=== PATIENT | male | born 1955 | race Two or more races ===

== ENCOUNTER 2019-07-13 13:27 | Inpatient (IN) | payer OTHER ==
[~2019-07-13] VITALS: Ht 172.7 cm; Wt 72.6 kg
[2019-07-13 16:00] VITALS: BP 90/59
--- NOTE | 2019-07-13 16:00 | NUR ---
VOLUNTEER MANAGER NOTE- PT ADMITTED TO GPS AT THIS TIME FOR 5150 DTS DTO HE WAS BROUGHT IN FROM [facility] ER. PT HAD STATED HE WAS GOING TO "KILL FAMILY AND SELF" ON FACE TO FACE ASSESSMENT, PT IS ALERT WITH [facility]TACT, MINIMIZING SITUATION. WHEN ASKED WHY HE'S HERE, PT STATED, "I THINK THERE WAS A FIGHT AT MY HOUSE." VS - B/P-118/75, HR- 90, RR-18, TEMP- 98.6, SATURATION- 97% RA. PT IS ORIENTED TO PERSON PLACE AND TIME. SOMEWHAT CONFUSED ABOUT EVENTS. STATED HE HAD RECENT HOSPITALIZATION IN [place] FOR DEPRESSION. ADMITTED TO SEVERAL SUICIDE ATTEMPTS IN PAST WITH RESULTING HOSPITALIZATIONS FOR THE IDEATION. DENIES SI HI AH VH AT PRESENT BUT ADMITS TO PARANOIA AT TIMES. SKIN CHECK COMPLETED. SKIN TEAR POSTERIOR LEFT FOREARM AND FUNGAL INFECTION TO LEFT GREAT TOE. PHOTOS TAKEN AND PLACED IN CHART. WOUND CARE CONSULT ORDERED. PT HAS ACCUCHECK OF 213. DR ZAMUDIO NOTIFIED OF ADMIT W ORDERS GIVEN. KRYSTINA ANTONIO NOTIFIED OF DR RAYO ADMIT HE'S COVERING FOR DR RAYO. MED REC TO BE COMPLETED AND SSI ADDRESSED. PT IS AMBULATORY, USES BR, MOVES ALL EXTREMITIES, FULL CODE W NKA. ORDERS WRITTEN AND COMPLIED WITH. PT RIGHTS PAMPHLET GIVEN AND ORIENTED TO UNIT. FOLLOW GPS PROTOCOL FOR SAFETY MONITORING AND ENCOURAGE PT INTERACTION.
[2019-07-13] MEDS ORDERED: MAGNESIUM HYDROXIDE 30 ML UDC PO PRN (16:30)
[2019-07-13] MEDS ORDERED: ACETAMINOPHEN 325 MG TABLET PO PRN (16:30)
[2019-07-13] MEDS ORDERED: MAG HYDROX/AL HYDROX/SIMETH 30 ML UDC PO PRN (16:30)
[2019-07-13] MEDS ORDERED: BLOOD SUGAR DIAGNOSTIC 1 EACH STRIP IN ONE (16:30)
[2019-07-13] MEDS ORDERED: ZOLPIDEM TARTRATE 5 MG TABLET PO PRN (16:30)
[2019-07-13] MEDS ORDERED: LORAZEPAM 0.5 MG TABLET PO PRN (16:30)
[2019-07-13] MEDS ORDERED: LEVO50TA8 PO (17:31)
[2019-07-13] MEDS ORDERED: INSU100V39 SQ (17:31)
[2019-07-13] MEDS ORDERED: ATOR40TA PO (17:31)
[2019-07-13] MEDS ORDERED: ASPI-605 PO (17:31)
[2019-07-13] MEDS ORDERED: METF1000 PO (17:31)
[2019-07-13] MEDS ORDERED: SERT100T PO (17:33)
[2019-07-13] MEDS ORDERED: MIRT15TA7 PO (17:33)
--- NOTE | 2019-07-13 19:58 | NUR ---
GPS RN NOTE: LEFT MESSAGE TO TESHA SOUSA (SPOUSE) REGARDING THE ADMISSION OF THE PATIENT. WILL CONTINUE TO MONITOR Q15 MINS FOR SAFETY
--- NOTE | 2019-07-13 20:16 | NUR ---
GPS RN NOTE: NOTIFIED ALEX MONCADA TO RECONCILE THE MEDICATION, RECEIVED AN ORDER OF HGBA1C NOTED AND CARRIED OUT. WILL CONTINUE TO MONITOR Q15 MINS FOR SAFETY
[2019-07-13 21:28] VITALS: BP 151/86
--- NOTE | 2019-07-13 22:00 | NUR ---
PATIENT AWAKE, ALERT AND ORIENTED X 2-3, CALM, COOPERATIVE, DEPRESSED MOOD, ISOLATIVE, WITHDRAWN, NO AGITATION, DENIES SI/HI, MINIMAL INTERACTION, NO SOB, NO ACUTE DISTRESS, BREATHING EVEN AND UNLABORED, NO S/S OF PAIN AND DISCOMFORT, SLEEPING PILLS GIVEN ORDERED AND PER PATIENT REQUEST. PATIENT REFUSED SNACKS. WILL CONTINUE TO MONITOR Q15 MINS FOR SAFETY
[2019-07-14 07:05] LABS: ALBUMIN 3.1 g/dL (3.4-5.0); BILIRUBIN,TOTAL 0.6 mg/dL (0.2-1.0); CALCIUM, SERUM 8.6 mg/dL (8.5-10.1); CREATININE 1.6 mg/dL (0.6-1.3); POTASSIUM 4.3 mmol/L (3.5-5.1); TOTAL PROTEIN, SERUM 6.1 g/dL (6.4-8.2)
[2019-07-14 07:09] LABS: CHOLESTEROL 106 mg/dL (<200); HDL CHOLESTEROL 39 mg/dL (40-60); LDL 45 mg/dL (0-99); TRIGLYCERIDES 146 mg/dL (30-150)
[2019-07-14 08:00] VITALS: BP 156/89
--- NOTE | 2019-07-14 10:21 | NUR ---
FAMILY CONTACT: SW contacted pts aSyda [phone] who states she wishes for pt to be psychiatrically hospitalized for 2/3 weeks. She states that pt was recently discharged a week ago from [facility] where he was hospitalized for 7 days. She states that pt lied to get discharged and states that he has not been taking his medication and has suffered from depression for 25 years. states that pt threatened to kill himself and his family and states that once he's discharged from [facility] she will picj him up and take him back to [facility] for continued psychiatric treatment.
--- NOTE | 2019-07-14 12:54 | NUR ---
INITIAL DISCHARGE PLAN: Per Sayda [phone] she wishes for pt to return home [address] [facility] [address] she states she will pickle pumper pt and transport to [facility] for continued psychiatric hospitalization once discharged. CAROLINA will help form a safe and proper discharge in collaboration with .
[2019-07-14] MEDS ORDERED: DEXTROSE 50%-WATER 50 ML DISP.SYRIN IV PRN (15:30)
[2019-07-14] MEDS: VENLAFAXINE XR 75 MG CAP.SR.24H PO SCH (15:38)
--- NOTE | 2019-07-14 15:46 | NUR ---
GROUP NOTE: Pt was present in group discussing the topic of "discharge planning." Pt refused to participate, pt told SW "I don't want to go." Pt states he does not know what will happen to him and where he will go. Addendum: 07/15/19 at 1426 by JOSH FIGUEROA GROUP NOTE: CAROLINA encouraged pt to participate in group therapy discussing the topic of "discharge planning." Pt refused to participate, pt told SW "I don't want to go." Pt states he does not know what will happen to him and where he will go. Pt is selectively mute and did not engage in further conversation with CAROLINA when she attempted to provide intervention.
--- NOTE | 2019-07-14 16:27 | NUR ---
UR NOTE: CAROLINA received a call from Martha, case planner with [employer] [phone] ext:[phone] stating pt is only covered for 07/13/19. CAROLINA did live clinical review. Pt is covered for 5 days (07/14/19-07/18/19) with review due on Friday07/19/19. Authorization #[id number].
--- NOTE | 2019-07-14 16:59 | NUR ---
Fazal FLAHERTY made aware that BP is 169/106 and MI 87 and said he will put in the order and reminded to reconcile meds.
[2019-07-14] MEDS: BLOOD SUGAR DIAGNOSTIC 1 EACH STRIP IN SCH ×2 (17:03→21:24)
[2019-07-14] MEDS: INSULIN REGULAR, HUMAN 100 UNIT/ML 3 ML VIAL SQ PRN ×2 (17:08→21:27)
[2019-07-14] MEDS: hydrALAZINE HCL 10 MG TABLET PO PRN (18:06)
[2019-07-14 20:08] VITALS: BP 151/89
[2019-07-14] MEDS: QUETIAPINE FUMARATE 25 MG TABLET PO SCH (21:24)
--- NOTE | 2019-07-14 23:35 | NUR ---
GPS RN NOTES: UPON DOING ROUNDS, PT IN BED LYING DOWN IN HIS BED AWAKE. ASKED PT IF HE NEEDED ANYTHING. PT SHOOK HEAD. ASKED PT IF HE IS UNABLE TO SLEEP, BUT PT DID NOT REPLY. ASKED PT IF HE WOULD LIKE TO TAKE AMBIEN 5MG PO PRN FOR SLEEP ORDERED; PT SHOOK HIS HEAD RIGHT AWAY. EXPLAIN RISKS AND BENEFITS. PT STILL REFUSED. CONTINUE TO MONITOR.
[2019-07-15 07:11] LABS: CALCIUM, SERUM 8.9 mg/dL (8.5-10.1); CREATININE 1.1 mg/dL (0.6-1.3)
[2019-07-15] MEDS: BLOOD SUGAR DIAGNOSTIC 1 EACH STRIP IN SCH ×4 (07:29→21:10)
[2019-07-15] MEDS: INSULIN REGULAR, HUMAN 100 UNIT/ML 3 ML VIAL SQ PRN ×4 (07:39→21:21)
[2019-07-15] MEDS: LEVOTHYROXINE SODIUM 50 MCG TABLET PO SCH (07:40)
[2019-07-15 08:00] VITALS: BP 156/100
[2019-07-15] MEDS: hydrALAZINE HCL 10 MG TABLET PO PRN ×2 (08:14→16:59)
[2019-07-15] MEDS: VENLAFAXINE XR 75 MG CAP.SR.24H PO SCH (08:14)
[2019-07-15] MEDS: ASPIRIN EC 81 MG TABLET.DR PO SCH (08:14)
[2019-07-15] MEDS: ATORVASTATIN 40 MG TABLET PO SCH (08:17)
--- NOTE | 2019-07-15 14:20 | NUR ---
GROUP NOTE: SW encouraged pt to participate in group therapy on this present day discussing "reality testing." Pt was asleep and not easily aroused by verbal cues.
[2019-07-15] MEDS: AMLODIPINE BESYLATE 5 MG TABLET PO SCH (14:43)
[2019-07-15 16:00] VITALS: BP 160/106
[2019-07-15 20:25] VITALS: BP 136/18
[2019-07-15 20:30] VITALS: BP 136/78
--- NOTE | 2019-07-15 20:45 | NUR ---
GPS RN OPENING NOTE: RECEIVED PATIENT AWAKE IN BED. PT IS CALM, COOPERATIVE, DEPRESSED MOOD, PT DENIES SI/HI. NO SOB. NO ACUTE DISTRESS. BREATHING EVEN AND UNLABORED. NO S/S OF PAIN AND DISCOMFORT. WILL CONTINUE TO MONITOR Q15 MINS FOR SAFETY AND BEHAVIOR.
[2019-07-15] MEDS: QUETIAPINE FUMARATE 25 MG TABLET PO SCH (21:05)
[2019-07-15 23:04] VITALS: BP 138/83
[2019-07-16 00:18] VITALS: BP 138/83
[2019-07-16] MEDS: BLOOD SUGAR DIAGNOSTIC 1 EACH STRIP IN SCH ×4 (07:23→22:20)
[2019-07-16] MEDS: INSULIN REGULAR, HUMAN 100 UNIT/ML 3 ML VIAL SQ PRN ×2 (07:25→12:13)
[2019-07-16] MEDS: LEVOTHYROXINE SODIUM 50 MCG TABLET PO SCH (07:41)
[2019-07-16 08:00] VITALS: BP 137/89
[2019-07-16] MEDS: ASPIRIN EC 81 MG TABLET.DR PO SCH (08:10)
[2019-07-16] MEDS: VENLAFAXINE XR 75 MG CAP.SR.24H PO SCH (08:10)
[2019-07-16] MEDS: ATORVASTATIN 40 MG TABLET PO SCH (08:10)
[2019-07-16] MEDS: AMLODIPINE BESYLATE 5 MG TABLET PO SCH (08:11)
--- NOTE | 2019-07-16 10:39 | NUR ---
FAMILY CONTACT: CAROLINA received a call from pts Sayda [phone] expressing concern stating that pt has not had any progress and is asking if the MD can change the pts medication. CAROLINA informed her that pt was just admitted and it will take time for his symptoms to improve. CAROLINA stated that she consulted with MD this present day and MD stated the medication will take time before there is any significant progress with pts symptoms. CAROLINA informed that pt is continuing to endorse suicidal ideation. She understood and asked SW to keep her updated.
[2019-07-16 16:00] VITALS: BP 159/92
--- NOTE | 2019-07-16 17:55 | NUR ---
GPS RN NOTES Patient refused breakfast, lunch and dinner. During lunch, Patient only had cranberry juice. Encouraged Patient to eat snacks, but Patient non-verbally refuses. Provided more cranberry juice and jello at bedside. Noted Patient fidgeting and feeling anxious. Will administer Lorazepam as ordered. Otherwise, Patient in stable condition. Will continue to monitor.
[2019-07-16 20:00] VITALS: BP 146/92
[2019-07-16] MEDS: QUETIAPINE FUMARATE 25 MG TABLET PO SCH (21:20)
[2019-07-17] MEDS: BLOOD SUGAR DIAGNOSTIC 1 EACH STRIP IN SCH ×4 (07:33→21:35)
[2019-07-17] MEDS: LEVOTHYROXINE SODIUM 50 MCG TABLET PO SCH (08:00)
[2019-07-17] MEDS: ENSURE ENLIVE CHOC 237 ML CAN PO SCH ×2 (08:01→16:44)
[2019-07-17] MEDS: AMLODIPINE BESYLATE 5 MG TABLET PO SCH (08:38)
[2019-07-17] MEDS: ASPIRIN EC 81 MG TABLET.DR PO SCH (08:38)
[2019-07-17] MEDS: ATORVASTATIN 40 MG TABLET PO SCH (08:38)
[2019-07-17] MEDS: VENLAFAXINE XR 75 MG CAP.SR.24H PO SCH (08:38)
[2019-07-17 09:43] VITALS: BP 114/72
[2019-07-17] MEDS: INSULIN REGULAR, HUMAN 100 UNIT/ML 3 ML VIAL SQ PRN ×3 (11:59→21:38)
[2019-07-17 16:00] VITALS: BP 124/74
[2019-07-17 20:00] VITALS: BP 125/86
--- NOTE | 2019-07-17 20:27 | NUR ---
GPS RN OPENING NOTE: RECEIVED PATIENT LYING IN BED IN ROOM.A/O,ISOLATIVE,FLAT AFFECT,COOPERATIVE, DEPRESSED MOOD, ANXIOUS ,EASILY AGITATION. PT DENIES SI/HI. NO SOB. NO ACUTE DISTRESS. BREATHING EVEN AND UNLABORED. NO S/S OF PAIN AND DISCOMFORT. WILL CONTINUE TO MONITOR Q15 MINS SAFETY AND BEHAVIOR.
[2019-07-17] MEDS: QUETIAPINE FUMARATE 25 MG TABLET PO SCH (21:16)
[2019-07-18] MEDS: BLOOD SUGAR DIAGNOSTIC 1 EACH STRIP IN SCH ×4 (07:32→21:41)
[2019-07-18 08:00] VITALS: BP 129/88
[2019-07-18] MEDS: AMLODIPINE BESYLATE 5 MG TABLET PO SCH (08:10)
[2019-07-18] MEDS: VENLAFAXINE XR 75 MG CAP.SR.24H PO SCH (08:10)
[2019-07-18] MEDS: ATORVASTATIN 40 MG TABLET PO SCH (08:10)
[2019-07-18] MEDS: LEVOTHYROXINE SODIUM 50 MCG TABLET PO SCH (08:10)
[2019-07-18] MEDS: ASPIRIN EC 81 MG TABLET.DR PO SCH (08:10)
[2019-07-18] MEDS: ENSURE ENLIVE CHOC 237 ML CAN PO SCH ×2 (08:11→17:08)
[2019-07-18] MEDS: INSULIN REGULAR, HUMAN 100 UNIT/ML 3 ML VIAL SQ PRN ×4 (08:28→21:42)
--- NOTE | 2019-07-18 08:59 | NUR ---
GPS RN NOTE: PATIENT IS RESTING IN BEDROOM. BG 177 THIS MORNING WITH 3UNITS OF COVERAGE. PATIENT IS COMPLIANT WITH MEDICATION ADMINISTRATION. ISOLATIVE. SELECTIVELY MUTE. WITHDRAWN. ENVIRONMENTAL CHECKS DONE. BED IN LOW, LOCKED POSITION WITH 2 SIDE RAILS UP. REFUSED TO ANSWER QUESTIONS REGARDING SI/HI AND VAH. WILL CONTINUE TO MONITOR Q15 FOR M
[2019-07-18 16:00] VITALS: BP 160/98
[2019-07-18 21:10] VITALS: BP 151/89
[2019-07-18] MEDS: QUETIAPINE FUMARATE 25 MG TABLET PO SCH (21:41)
[2019-07-19] MEDS: INSULIN REGULAR, HUMAN 100 UNIT/ML 3 ML VIAL SQ PRN ×4 (07:33→21:24)
[2019-07-19] MEDS: BLOOD SUGAR DIAGNOSTIC 1 EACH STRIP IN SCH ×4 (07:34→21:24)
[2019-07-19 08:00] VITALS: BP 151/92
--- NOTE | 2019-07-19 08:25 | NUR ---
UR NOTE: CAROLINA contacted Martha, caser up with [employer] [phone] [phone] and conducted concurrent review via voicemail. Authorization #[id number].
[2019-07-19] MEDS: ASPIRIN EC 81 MG TABLET.DR PO SCH (08:40)
[2019-07-19] MEDS: LEVOTHYROXINE SODIUM 50 MCG TABLET PO SCH (08:40)
[2019-07-19] MEDS: ATORVASTATIN 40 MG TABLET PO SCH (08:40)
[2019-07-19] MEDS: ENSURE ENLIVE CHOC 237 ML CAN PO SCH ×2 (08:41→16:45)
[2019-07-19] MEDS: AMLODIPINE BESYLATE 5 MG TABLET PO SCH (08:41)
--- NOTE | 2019-07-19 09:10 | NUR ---
UR NOTE: CAROLINA contacted Martha, case operator with [employer] [phone] [phone] and conducted concurrent review via voicemail. Authorization #[id number].
[2019-07-19] MEDS: BUPROPION XL 150 MG TAB.ER.24 PO SCH (09:14)
--- NOTE | 2019-07-19 12:05 | NUR ---
UR NOTE: CAROLINA contacted Martha, block and case maker with [employer] [phone] [phone] and conducted concurrent review via voicemail with medication change update. Authorization #[id number].
--- NOTE | 2019-07-19 15:15 | NUR ---
GROUP NOTE: SW encouraged pt to attend group therapy on this present day to discuss "discharge planning." Pt is not appropriate for group. Pt is selectively mute and does not engage in conversation. Pt is staring at the ceiling and does not maintain eye contact.
[2019-07-19 16:00] VITALS: BP 143/81
[2019-07-19 20:13] VITALS: BP 131/80
[2019-07-19] MEDS: QUETIAPINE FUMARATE 25 MG TABLET PO SCH (21:14)
[2019-07-20] MEDS: BLOOD SUGAR DIAGNOSTIC 1 EACH STRIP IN SCH ×4 (07:21→21:48)
[2019-07-20 08:00] VITALS: BP 123/61
[2019-07-20] MEDS: ASPIRIN EC 81 MG TABLET.DR PO SCH (08:16)
[2019-07-20] MEDS: ENSURE ENLIVE CHOC 237 ML CAN PO SCH ×2 (08:16→17:16)
[2019-07-20] MEDS: LEVOTHYROXINE SODIUM 50 MCG TABLET PO SCH (08:16)
[2019-07-20] MEDS: BUPROPION XL 150 MG TAB.ER.24 PO SCH (08:16)
[2019-07-20] MEDS: ATORVASTATIN 40 MG TABLET PO SCH (08:16)
[2019-07-20] MEDS: AMLODIPINE BESYLATE 5 MG TABLET PO SCH (08:16)
[2019-07-20] MEDS: INSULIN REGULAR, HUMAN 100 UNIT/ML 3 ML VIAL SQ PRN ×4 (08:23→21:54)
--- NOTE | 2019-07-20 09:55 | NUR ---
GPS RN NOTE: RECEIVED PT LYING IN BED. NO ACUTE DISTRESS NOTED. PT IS ISOLATIVE AND WITHDRAWN. FLAT AFFECT AND GUARDED. PT IS COMPLIANT WITH MEDICATION ADMINISTRATION, ACCUCHECKS AND PLAN OF CARE. SELECTIVELY MUTE. BLOOD SUGAR 182 THIS AM WITH 3UNITS COVERAGE. WILL CONT TO MONITOR PT PER GPS PROTOCOL FOR SAFETY AND BEHAVIOR.
--- NOTE | 2019-07-20 10:26 | NUR ---
UR NOTE: SW received a call from Martha transplant case manager with [employer] [phone] stating pt is covered 3 additional days from 07/19/19-07/21/19 with review due on 07/22/19. Authorization #[id number].
--- NOTE | 2019-07-20 10:28 | NUR ---
RN-CO: DR JENSEN MADE AWARE OF THE CONSULT ORDER.
--- NOTE | 2019-07-20 15:16 | NUR ---
GROUP NOTE: SW encouraged pt to attend group therapy on this present day to discuss "negative behavior." Pt is not appropriate for group. Pt is selectively mute and does not engage in conversation. Pt is staring at the ceiling and does not maintain eye contact.
[2019-07-20 16:00] VITALS: BP 139/83
[2019-07-20 20:00] VITALS: BP 131/89
[2019-07-20 20:14] VITALS: BP 131/89
[2019-07-20] MEDS: QUETIAPINE FUMARATE 25 MG TABLET PO SCH (21:43)
--- NOTE | 2019-07-20 23:05 | NUR ---
GPS RN notes Transfer of care to JOANNE Champion.
--- NOTE | 2019-07-20 23:10 | NUR ---
GPS RN OPENING NOTE RECEIVED REPORT FROM PATRICIA RUBIO. TOLERATING ROOM AIR. NO S/S OF PAIN. NO DISTRESS NOTED. PATIENT CURRENTLY ASLEEP. WILL CONTINUE TO MONITOR.
--- NOTE | 2019-07-20 23:50 | NUR ---
TRANSFER OF CARE TO PATRICIA RUBIO.
--- NOTE | 2019-07-20 23:51 | NUR ---
GPS RN notes Received Pt back from JOANNE Champion.
[2019-07-21] MEDS: BLOOD SUGAR DIAGNOSTIC 1 EACH STRIP IN SCH ×4 (07:16→21:40)
[2019-07-21] MEDS: INSULIN REGULAR, HUMAN 100 UNIT/ML 3 ML VIAL SQ PRN ×4 (07:58→21:37)
[2019-07-21 08:00] VITALS: BP 129/74
[2019-07-21] MEDS: LEVOTHYROXINE SODIUM 50 MCG TABLET PO SCH (08:06)
[2019-07-21] MEDS: ATORVASTATIN 40 MG TABLET PO SCH (08:06)
[2019-07-21] MEDS: AMLODIPINE BESYLATE 5 MG TABLET PO SCH (08:07)
[2019-07-21] MEDS: ASPIRIN EC 81 MG TABLET.DR PO SCH (08:07)
[2019-07-21] MEDS: ENSURE ENLIVE CHOC 237 ML CAN PO SCH ×2 (08:07→17:10)
[2019-07-21] MEDS: BUPROPION XL 150 MG TAB.ER.24 PO SCH (08:07)
--- NOTE | 2019-07-21 08:52 | NUR ---
GPS RN NOTE: RECEIVED PT LYING IN BED. NO ACUTE DISTRESS NOTED. PT IS ISOLATIVE AND WITHDRAWN. AMBULATES TO BATHROOM BY HIMSELF WITH STEADY GAIT. FLAT AFFECT AND GUARDED. PT IS COMPLIANT WITH MEDICATION ADMINISTRATION, ACCUCHECKS AND PLAN OF CARE. SELECTIVELY MUTE. BLOOD SUGAR 166 THIS AM WITH 3UNITS COVERAGE. WILL CONT TO MONITOR PT Q15 FOR MOOD, SAFETY AND BEHAVIOR.
[2019-07-21 16:00] VITALS: BP 116/72
[2019-07-21 20:27] VITALS: BP 119/72
--- NOTE | 2019-07-21 20:39 | NUR ---
PT LYING IN BED. NO ACUTE DISTRESS NOTED. PER REPORT PT IS ISOLATIVE AND WITHDRAW AND AMBULATES TO BATHROOM BY HIMSELF WITH STEADY GAIT AND PT IS COMPLIANT WITH MEDICATION ADMINISTRATION, ACCUCHECKS AND PLAN OF CARE.. PT HAS FLAT AFFECT AND GUARDED. RESPONDS APPROPRIATELY WHEN SPOKEN TOO. DENIES SI/HI. WILL CONT TO MONITOR PT Q15 FOR MOOD CHANGES, SAFETY AND BEHAVIOR.
[2019-07-21] MEDS: QUETIAPINE FUMARATE 25 MG TABLET PO SCH (21:37)
[2019-07-22 06:50] LABS: BASOPHILS % (AUTO) 0.5 % (0.0-2.0); EOSINOPHILS % (AUTO) 3.1 % (0.0-6.0); HEMATOCRIT 34 % (39-51); HEMOGLOBIN 12.1 g/dL (13.5-17.5); LYMPHOCYTES # (AUTO) 1.9 /CMM (0.8-4.8); LYMPHOCYTES % (AUTO) 25.4 % (20.0-44.0); MEAN CORPUSCULAR HGB CONC 36 g/dl (31.0-36.0); MEAN CORPUSCULAR VOLUME 86 fL (80-96); MONOCYTES # (AUTO) 0.6 /CMM (0.1-1.30); MONOCYTES % (AUTO) 8.6 % (2.0-12.0); NEUTROPHILS # (AUTO) 4.6 /CMM (1.8-8.9); NEUTROPHILS % (AUTO) 62.4 % (43.0-81.0); PLATELET COUNT (AUTO) 288 /CMM (150-450); RED BLOOD CELL COUNT(AUTO) 3.97 MIL/uL (4.5-6.0); WHITE BLOOD COUNT (AUTO) 7.4 K/uL (4.3-11.0)
[2019-07-22 07:11] LABS: CREATININE 1.3 mg/dL (0.6-1.3); MAGNESIUM 1.9 mg/dL (1.8-2.4); PHOSPHORUS 4.1 mg/dL (2.5-4.9); POTASSIUM 4.2 mmol/L (3.5-5.1)
[2019-07-22 08:00] VITALS: BP 129/75
--- NOTE | 2019-07-22 08:00 | NUR ---
RECEIVED PT LYING IN BED. NO ACUTE DISTRESS NOTED. PT IS ISOLATIVE AND WITHDRAWN. AMBULATES TO BATHROOM BY HIMSELF WITH STEADY GAIT. FLAT AFFECT AND GUARDED. PT IS COMPLIANT WITH MEDICATION ADMINISTRATION, ACCUCHECKS AND PLAN OF CARE. SELECTIVELY MUTE. BLOOD SUGAR 210 THIS AM WITH 4 UNITS COVERAGE. WILL CONT TO MONITOR PT Q15 FOR MOOD, SAFETY AND BEHAVIOR.
[2019-07-22] MEDS: INSULIN REGULAR, HUMAN 100 UNIT/ML 3 ML VIAL SQ PRN ×4 (08:34→21:30)
[2019-07-22] MEDS: BUPROPION XL 150 MG TAB.ER.24 PO SCH (08:54)
[2019-07-22] MEDS: ATORVASTATIN 40 MG TABLET PO SCH (08:54)
[2019-07-22] MEDS: ASPIRIN EC 81 MG TABLET.DR PO SCH (08:54)
[2019-07-22] MEDS: AMLODIPINE BESYLATE 5 MG TABLET PO SCH (08:54)
[2019-07-22] MEDS: LEVOTHYROXINE SODIUM 50 MCG TABLET PO SCH (08:54)
[2019-07-22] MEDS: BLOOD SUGAR DIAGNOSTIC 1 EACH STRIP IN SCH ×4 (08:55→21:27)
[2019-07-22] MEDS: ENSURE ENLIVE CHOC 237 ML CAN PO SCH (09:00)
--- NOTE | 2019-07-22 09:18 | NUR ---
UR NOTE: CAROLINA contacted Martha, binder caser with [employer] [phone] [phone] and conducted concurrent review via voicemail. Authorization #[id number].
--- NOTE | 2019-07-22 11:11 | NUR ---
INDIVIDUAL INTERVENTION: SW provided intervention to pt and addressed pts isolation and withdrawal. SW encouraged pt to get out of bed and go to the activity room. Pt got up and followed SW to the activity room. Pt states he is feeling better and from a scale from 1-10 he states he feels he is at an 8. SW assessed for suicidality and pt avoided the question and just shrugged his shoulders saying, "I don't know."
--- NOTE | 2019-07-22 11:27 | NUR ---
FAMILY CONTACT: CAROLINA contacted pts Sayda [phone] and provided her with updated information regarding pts discharge plan and progress. SW informed her that MD made med changes and that pt is responding better to the antidepressive medication and also informed her that pt got up from bed and went to the activity room. She also informed her that pt states he is feeling better. SW stated that MD is anticipating discharged for either Friday07/24/19 or Friday07/26/19 and wishes for her to speak with him to see if she feels he is stable enough to discharge home. stated that she needs help with him at home as pt becomes agitated when she tries to give him medication and food. SW stated that she will refer pt to home health and agreed.
--- NOTE | 2019-07-22 11:27 | NUR ---
UR NOTE: CAROLINA contacted Martha human services case manager with [employer] [phone] [phone] and conducted concurrent review via voicemail. SW provided additional information. Authorization #[id number].
[2019-07-22 16:00] VITALS: BP 115/63
--- NOTE | 2019-07-22 16:01 | NUR ---
Individual Note: In lieu of group therapy due to COVID 19, SW met with the pt at bedside and attempted to speak to the pt regarding his plan for discharge but the pt appears to be selectively mute. SW deemed the pt inappropriate for therapy at this time.
[2019-07-22] MEDS: GLUCERNA SHAKE 237 ML CAN PO SCH (17:32)
[2019-07-22 20:46] VITALS: BP 123/70
[2019-07-22] MEDS: QUETIAPINE FUMARATE 25 MG TABLET PO SCH (21:27)
--- NOTE | 2019-07-22 21:32 | NUR ---
GPS RN NOTES: NO INSULIN PER SLIDING SCALE PT BLOOD SUGAR 93. PER SLIDING SCALE NO INSULIN ADMINISTERED. CONTINUE TO MONITOR.
[2019-07-23] MEDS: BLOOD SUGAR DIAGNOSTIC 1 EACH STRIP IN SCH ×4 (07:50→21:59)
[2019-07-23] MEDS: INSULIN REGULAR, HUMAN 100 UNIT/ML 3 ML VIAL SQ PRN ×4 (07:51→22:06)
[2019-07-23 08:00] VITALS: BP 103/57
[2019-07-23] MEDS: LEVOTHYROXINE SODIUM 50 MCG TABLET PO SCH (08:19)
[2019-07-23] MEDS: ATORVASTATIN 40 MG TABLET PO SCH (08:19)
[2019-07-23] MEDS: ASPIRIN EC 81 MG TABLET.DR PO SCH (08:19)
[2019-07-23] MEDS: AMLODIPINE BESYLATE 5 MG TABLET PO SCH (08:19)
[2019-07-23] MEDS: BUPROPION XL 150 MG TAB.ER.24 PO SCH (08:19)
[2019-07-23] MEDS: GLUCERNA SHAKE 237 ML CAN PO SCH ×2 (08:20→16:42)
--- NOTE | 2019-07-23 08:26 | NUR ---
UR NOTE: CAROLINA contacted Martha, case manager specialist with [employer] [phone] [phone] and left a voicemail requesting authorization for 07/22/19 and 07/23/19. CAROLINA informed her that pt will be discharged on Friday07/24/19.
--- NOTE | 2019-07-23 08:31 | NUR ---
FAMILY CONTACT: CAROLINA contacted pts Sayda [phone] and informed her pt will be discharged tomorrow Friday07/24/19. stated she will pick pt up at 10:30am via private vehicle.
--- NOTE | 2019-07-23 13:30 | NUR ---
UR NOTE: SW received a voicemail from Martha, top case assembler with [employer] [phone] stating pt is covered 2 additional days, 07/22/19-07/23/19 with discharge clinical due on Friday07/26/19. Authorization #[id number].
--- NOTE | 2019-07-23 13:30 | NUR ---
pt noted interacting with staff and walking around the unit. had 15-30mins episode of staying in the dining room as well. will continue to monitor pt.
[2019-07-23 16:00] VITALS: BP 139/79
[2019-07-23 19:30] VITALS: BP 150/88
--- NOTE | 2019-07-23 19:55 | NUR ---
RN NOTES PATIENT WALKING AROUND THE UNIT. NO S/S OR COMPLAIN OF PAIN AT THIS TIME. PATIENT DISPLAYS NO S/S OF DISTRESS. BREATHING EVEN AND UNLABORED ON ROOM AIR. PATIENT IS ALERT AND ORIENTED X 2. QUIET, FORGETFUL, AND ISOLATIVE. SAFETY PRECAUTIONS IN PLACE. BED IN LOWEST POSITION, LOCKED, AND CALL LIGHT KEPT WITHIN REACH. WILL CONTINUE TO MONITOR
[2019-07-23] MEDS: QUETIAPINE FUMARATE 25 MG TABLET PO SCH (21:55)
[2019-07-24] MEDS: BLOOD SUGAR DIAGNOSTIC 1 EACH STRIP IN SCH (07:33)
[2019-07-24] MEDS: LEVOTHYROXINE SODIUM 50 MCG TABLET PO SCH (07:52)
[2019-07-24 08:00] VITALS: BP 102/60
[2019-07-24] MEDS: GLUCERNA SHAKE 237 ML CAN PO SCH (08:02)
[2019-07-24] MEDS: INSULIN REGULAR, HUMAN 100 UNIT/ML 3 ML VIAL SQ PRN (08:14)
--- NOTE | 2019-07-24 08:15 | NUR ---
Dr. Mcghee gave an order to d/c hold and d/c home and to follow up with psych and medical doctors. Called Sayda correa said she will come at 1030 to picking machine operator helper the pt.
[2019-07-24] MEDS: ASPIRIN EC 81 MG TABLET.DR PO SCH (08:16)
[2019-07-24] MEDS: BUPROPION XL 150 MG TAB.ER.24 PO SCH (08:16)
[2019-07-24] MEDS: ATORVASTATIN 40 MG TABLET PO SCH (08:16)
[2019-07-24 08:17] VITALS: BP 102/60
[2019-07-24] MEDS: AMLODIPINE BESYLATE 5 MG TABLET PO SCH (08:17)
--- NOTE | 2019-07-24 10:15 | NUR ---
GPS/RN-NOTES PATIENT DISCHARGE HOME TODAY WITH TESHA. DR. ZAMUDIO AND SD HEDRICK AWARE AND AGREED OF THE DISCHARGE WITH ORDERS.PATIENT DID NOT VERBALIZE SI/HI,DENIES VISUAL AUDITORY HALLUCINATIONS AT THE TIME OF DISCHARGE. ALL DISCHARGE MEDICATIONS WAS REVIEWED WITH THE PATIENT WITH UNDERSTANDING. INSTRUCTED PATIENT TO STAY HOME AND FOLLOW THE PRECAUTIONS FOR THE [facility] VIRUS PANDEMIC, ALSO FOLLOW UP WITH PCP AND GO TO THE NEAREST EMERGENCY ROOM IN CASE OF EMERGENCY. PATIENT LEFT THE UNIT ALERT ORIENTED X3 AMBULATORY WITH STEADY GAIT. PATIENT WAS ASSISTED IN THE LOBBY BY THE CHARGE NURSE WITH ALL BELONGINGS INCLUDING RX. PATIENT WAS GAMMA FACILITIES OPERATOR BY TESHA VIA PRIVATE CAR.
--- NOTE | 2019-07-26 08:14 | NUR ---
DISCHARGE NOTE: Pt was discharged at 10:30am via private vehicle home [address] [facility] [address]. Pts Sayda [phone] picked pt up and transported him home. Pts mood was euthymic with congruent affect. Pt denied visual/auditory hallucinations and denied suicidal/homicidal ideation. Pt will follow up with [facility] [address] [facility] [address], [facility] [address] and [facility] Address: [address], [place] [address] . The multidisciplinary exit care form was done, printed, signed, and given to the patient.
--- NOTE | 2019-07-26 08:20 | NUR ---
UR NOTE: CAROLINA contacted Martha, nurse outreach case manager with [employer] [phone] ext:[phone] and conducted discharge clinical via voicemail. Authorization #[id number].
== END 2019-07-24 10:15 | disposition home or self-care (01) | DRG 885 ==
LOC: GPS 15:42
PROVIDERS: ADMIT Psychiatry & Neurology Psychiatry; ATTEND Nurse Practitioner Acute Care
DX: F33.3 Major depressive disorder, recurrent, severe with psychotic symptoms (principal); N17.0 Acute kidney failure with tubular necrosis; E11.65 Type 2 diabetes mellitus with hyperglycemia; R45.851 Suicidal ideations; F23 Brief psychotic disorder; F03.90 Unspecified dementia, unspecified severity, without behavioral disturbance, psychotic disturbance, mood disturbance, and anxiety; E78.5 Hyperlipidemia, unspecified; E03.9 Hypothyroidism, unspecified; I10 Essential (primary) hypertension
CPT/HCPCS: 36415; 70450-TC; 80048-TC; 80053-TC; 80061-TC; 82962-TC; 83735-TC; 84100-TC; 84443-TC; 85025-TC; 87081-TC; J1815